=== PATIENT | male | born 1935 | race Caucasian/White ===

== ENCOUNTER 2016-12-06 12:49 | Emergency (ER) | payer MEDICARE, BC ==
--- NOTE | ~2016-12-06 | ER ---
PATIENT'S NAME: OWEN MCGUIRE [facility] AGE: 81 Y [address] ROOM: [place] [address] LOCATION: [facility] ADMIT DATE: 12/06/2016 ER/Outpatient Report DISCHARGE DATE: 12/06/2016 FAMILY PHYSICIAN: William Mukherjee MD ATTENDING PHYSICIAN: Shazia Douglas Time of Evaluation: 1300 hours. CHIEF COMPLAINT: Bleeding from his penis. HISTORY OF PRESENT ILLNESS: The patient is an 81-year-old male, presents with a complaint of a small amount of bright red blood from his meatus. The bleeding has been symptomatic. He has had no burning or urgency. ALLERGIES: PENICILLIN. PRIMARY CARE PROVIDER: Dr. Mukherjee in the [facility]. CURRENT MEDICATIONS: 1. Eliquis. 2. Gabapentin. 3. Ropinirole. 4. Glycopyrrolate. 5. Calcium and Vitamin D. 6. Tamsulosin. MEDICAL HISTORY: History of BPH, atrial fibrillation, RLS. SOCIAL HISTORY: Nonsmoker. Alcohol occasionally. was present. REVIEW OF SYSTEMS: GENERAL: No recent health issues. HEENT: Denies headache. Denied any recent bleeding from his gums. RESPIRATORY: No shortness of breath. CARDIOVASCULAR: No chest pain. No increased edema. GASTROINTESTINAL: Denies any black stools or change in his bowel habits. SKIN: No other bruising. GENITOURINARY: Painless bleeding from his meatus. PATIENT'S NAME: OWEN MCGUIRE [facility] AGE: 81 Y [address] ROOM: [place] [address] LOCATION: [facility] ADMIT DATE: 12/06/2016 ER/Outpatient Report DISCHARGE DATE: 12/06/2016 FAMILY PHYSICIAN: William Mukherjee MD ATTENDING PHYSICIAN: Shazia Douglas PHYSICAL EXAMINATION: VITAL SIGNS: His blood pressure was 114/55, his temperature was 98, his respiratory rate 16, pulse 42, O2 sats were 98%. GENERAL APPEARANCE: A pleasant 81-year-old male, alert, oriented. HEENT: He has had hearing loss bilaterally. Oral membranes were moist. LUNGS: Sounded clear peripherally. HEART: Rate was a little slow but no murmurs. ABDOMEN: Appeared soft, nontender. GENITALIA: Exam of the penis at the meatus, there was small amount of irritation but no active bleeding. LABORATORY DATA AND X-RAYS: He had a CBC: White count of 5000, his hemoglobin was 12.4, his platelets were 182,000. Urine, there was microscopic blood present 20 to 50, negative bacteria, no significant leukocytes. ASSESSMENT: 1. Hematuria. 2. History of atrial fibrillation, currently on Eliquis. PLAN: Urine culture was set up. The patient will follow up with Dr. Mukherjee within the next 48 hours or return to the emergency room sooner if he has increased bleeding or concerns. ANGEL PIMENTEL FOR MD ATIF ONEAL/adilson /[id number] d: 12/14/[id number] t: 12/19/16 1009, OUTPATIENT REPORT
[2016-12-06 14:28] LABS: BASOPHIL % 0.4 %; EOSINOPHIL # 0.2 K/uL (0.0-0.5); EOSINOPHIL % 3.8 %; HEMATOCRIT 36.1 % (33.0-50.0); HEMOGLOBIN 12.4 g/dL (11.0-16.0); IMMATURE GRANULOCYTE % 0.2 %; LYMPHOCYTE # 1.9 K/uL (0.8-4.0); LYMPHOCYTE % 38.3 %; MCH 33.2 pg (27.0-34.0); MCHC 34.3 gm/dL (32.0-36.5); MCV 96.5 fl (83.0-98.0); MONOCYTE # 0.4 K/uL (0.0-1.0); MONOCYTE % 8.6 %; MPV 10.1 fl (9.4-12.4); NEUTROPHIL # (ANC) 2.4 K/uL (1.4-9.0); NEUTROPHIL % 48.7 %; NRBC % 0 /100WBC (0-0.00); PLATELET COUNT 182 K/uL (150-450); RBC 3.74 M/uL (3.50-5.50); RDW-CV 13.4 % (11.9-14.6)
[2016-12-06 14:41] LABS: BILIRUBIN URINE NEGATIVE (NEGATIVE); BLOOD URINE 250 /UL (NEGATIVE); COLOR URINE YELLOW (YELLOW); GLUCOSE URINE NEGATIVE (NEGATIVE); KETONE URINE NEGATIVE (NEGATIVE); LEUKOCYTES URINE NEGATIVE /UL (NEGATIVE); NITRITE URINE NEGATIVE (NEGATIVE); PROTEIN URINE NEGATIVE (NEGATIVE); TURBIDITY URINE CLEAR (CLEAR); UROBILINOGEN URINE NORMAL (NORMAL)
[2016-12-06 14:47] LABS: BACTERIA URINE NEGATIVE (NEGATIVE); EPITHELIAL URINE 0-2 #/HPF (NEGATIVE); MUCUS URINE 1+ (NEGATIVE); RBC URINE 20-50 #/HPF (NEGATIVE); WBC URINE NEGATIVE #/HPF (NEGATIVE)
[2016-12-06 14:49] LABS: INR - (THERAPEUTIC) 1.08 (0.92-1.07); PROTIME 11.4 SECONDS (9.8-11.4); PTT 31 SECONDS (25-32)
== END 2016-12-06 15:12 | disposition disaster alternative care site (69) ==
LOC: GMED 12:49
PROVIDERS: Family Medicine
DX: R31.9 Hematuria, unspecified (principal); I48.91 Unspecified atrial fibrillation; G25.81 Restless legs syndrome; N40.0 Benign prostatic hyperplasia without lower urinary tract symptoms; Z88.0 Allergy status to penicillin; Z79.899 Other long term (current) drug therapy; Z79.01 Long term (current) use of anticoagulants